=== PATIENT | male | born 1995 | race Caucasian/White ===

== ENCOUNTER 2017-05-15 21:52 | Emergency (ER) | payer SELFPAY ==
[2017-05-15 21:55] VITALS: BP 139/86
[2017-05-15] MEDS ORDERED: NAPR275T59 PO (22:15)
[2017-05-15] MEDS ORDERED: ACET325T9 PO (22:15)
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
== END 2017-05-15 22:30 | disposition home or self-care (01) ==
LOC: ER 21:52
DX: S39.012A Strain of muscle, fascia and tendon of lower back, initial encounter (principal); V89.2XXA Person injured in unspecified motor-vehicle accident, traffic, initial encounter; Y93.89 Activity, other specified; Y99.8 Other external cause status; Y92.410 Unspecified street and highway as the place of occurrence of the external cause
CPT/HCPCS: 99282